=== PATIENT | female | born 1995 | race Caucasian/White ===

== ENCOUNTER 2017-11-11 17:54 | Observation (INO) | payer BC ==
[2017-11-11] MEDS ORDERED: Sodium Chloride 0.9% 10 ML Syringe FLUSH PRN (18:31)
[2017-11-11] MEDS ORDERED: Sodium Chloride 0.9% 2.5 ML Syringe FLUSH PRN (18:31)
[2017-11-11] MEDS ORDERED: HYDROmorphone 2 MG/ML SDV IVPUSH ONE (18:32)
[2017-11-11] MEDS ORDERED: Ondansetron 4 MG/2 ML SDV IVPUSH ONE (18:32)
[2017-11-11] MEDS ORDERED: Sodium Chloride 0.9% 1,000 ML IV ONE (18:32)
--- NOTE | 2017-11-11 18:35 | EDM.PDOC ---
ED HPI GENERAL MEDICAL PROBLEM - General Chief Complaint: Lower Extremity Injury/Pain Stated Complaint: POSSIBLE BROKEN RIGHT ANKLE Time Seen by Provider: 11/11/17 18:27 - History of Present Illness INITIAL COMMENTS - FREE TEXT/NARRATIVE: HISTORY AND PHYSICAL: History of present illness: The patient is a healthy 22-year-old female who presents after she was carrying a box down 8 stairs lost her footing and rolled her ankle and fell. Complains of pain at her right ankle but she did not lose consciousness hit her head and has no head neck or back pain. Patient states that she has no foot or toe pain and neurosensory is intact in her foot she has no proximal tib-fib knee or hip pain. The patient states that prior to these events she was in her usual state of good health with no systemic complaints and currently has no nausea or vomiting no chest pain no shortness of breath. Not taking medications prior to coming here. Patient denies . Patient states that she last ate food at 12 noon Review of systems: As per history of present illness and below otherwise all systems reviewed and negative. Past medical history: As per history of present illness and as reviewed below otherwise noncontributory. Surgical history: As per history of present illness and as reviewed below otherwise noncontributory. Social history: No reported history of drug or alcohol abuse. Family history: As per history of present illness and as reviewed below otherwise noncontributory. Physical exam: General: Well-developed well-nourished female who is overweight and nontoxic and tearful on my evaluation. Vital signs are noted by me HEENT: Atraumatic, normocephalic, negative for conjunctival pallor or scleral icterus, mucous membranes moist, throat clear, neck supple, nontender, trachea midline. There is no evidence of any facial swelling or deformities and there are no midline step-offs tenderness defects of the cervical spine Lungs: Clear to auscultation, breath sounds equal bilaterally, chest nontender. Heart: S1S2, regular rate and rhythm no overt murmurs Abdomen: Soft, nondistended, nontender. NABS Pelvis: Stable nontender. No lateral hip tenderness on the right Genitourinary: Deferred. Rectal: Deferred. Extremities: Atraumatic with full range of motion of all extremities with the exception of the right ankle where there is diffuse tenderness and there is a visible malalignment seen with the foot deviated laterally. The foot and toes and calcaneus are without tenderness defects or deformities and pulses are intact with a strong dorsalis pedis appreciated on the right foot. The proximal tib-fib is also nontender as is the knee thigh and hip. Legs are, negative for cords or calf pain. Neurovascular unremarkable. Neuro: Awake, alert, oriented. Motor and sensory unremarkable throughout. Exam nonfocal. Back: There are no midline step-offs tenderness defects of the lower thoracic or lumbar spine Diagnostics: X-ray right ankle and one view tib-fib Therapeutics: IV fluids Zofran Dilaudid 1851: Case was discussed with Dr. Higginbotham our orthopedic surgeon. He is coming in to review the films and reduce the fracture dislocation. Patient and family at bedside are also aware that we are awaiting the official reading. They are aware of my concern that this may be a trimalleolar fracture dislocation. They are aware that Dr. Higginbotham is coming in to look at the films and evaluate the patient personally. 1899: Case endorsed to Dr. Hannon to follow-up Dr. Higginbotham's consult and care plan and help facilitate disposition. Impression: Fracture dislocation of right ankle Definitive disposition and diagnosis as appropriate pending reevaluation and review of above. Please note that Dr. Higginbotham came to the ED and did reduce the dislocation and immobilized the ankle. She had a CAT scan performed and is scheduled to have surgery on November 12. She was admitted to the hospital for this care plan. Right Ankle Pain Score (Numeric/FACES): 9 - Related Data Allergies Allergy/AdvReac Type Severity Reaction Status Date / Time No Known Allergies Allergy Verified 11/11/17 18:10 Home Meds: Home Meds . [No Known Home Meds] 11/11/17 [History] Past Medical History Psychiatric History: Reports: Anxiety - Past Surgical History HEENT Surgical History: Reports: Oral Surgery Other HEENT Surgeries/Procedures: wisdom teeth Social & Family History - Family History Family Medical History: Noncontributory - Tobacco Use Smoking Status *Q: Never Smoker - Caffeine Use Caffeine Use: Reports: Coffee, Soda - Recreational Drug Use Recreational Drug Use: No Review of Systems - Review of Systems Review Of Systems: ROS reveals no pertinent complaints other than HPI. ED EXAM, GENERAL - Physical Exam Exam: See Below (See dictation) Course - Vital Signs Last Recorded V/S: Last Vital Signs Temp 36.3 C 11/12/17 04:00 Pulse 77 11/12/17 04:00 Resp 12 11/12/17 04:00 BP 117/62 11/12/17 04:00 Pulse Ox 95 11/12/17 04:00 - Orders/Labs/Meds Orders: Active Orders 24 hr Category Date Time Status Notify Provider Consults [RC] ASDIRECTED Care 11/11/17 18:55 Active Consult to Physician [CONS] Stat Cons 11/11/17 18:55 Active Ankle 2V Rt [CR] Stat Exams 11/11/17 18:31 Taken Tibia Fibula Rt [CR] Stat Exams 11/11/17 18:35 Taken Sodium Chloride 0.9% [Saline Flush] Med 11/11/17 18:31 Active 10 ml FLUSH ASDIRECTED PRN Sodium Chloride 0.9% [Saline Flush] Med 11/11/17 18:31 Active 2.5 ml FLUSH ASDIRECTED PRN Saline Lock Insert [OM.PC] Stat Oth 11/11/17 18:31 Ordered Medication Orders Cefazolin Sodium/Dextrose 2 gm (/ Premix) 50 mls @ 100 mls/hr IV ONCALL ONE Stop: 11/12/17 10:29 Last Admin: 11/12/17 09:02 Dose: 100 mls/hr Lactated Ringer's (Ringers, Lactated) 1,000 mls @ 50 mls/hr IV ASDIRECTED ARIAS Last Admin: 11/12/17 00:45 Dose: 50 mls/hr Morphine Sulfate (Morphine) 2 mg IVPUSH Q2H PRN PRN Reason: Pain (moderate 4-6) Oxycodone/Acetaminophen (Percocet 325-5 Mg) 1 tab PO Q4H PRN PRN Reason: Pain Last Admin: 11/11/17 22:16 Dose: 1 tab Sodium Chloride (Saline Flush) 10 ml FLUSH ASDIRECTED PRN PRN Reason: Keep Vein Open Sodium Chloride (Saline Flush) 2.5 ml FLUSH ASDIRECTED PRN PRN Reason: Keep Vein Open Meds: Medications Generic Name Dose Route Start Last Admin Trade Name Freq PRN Reason Stop Dose Admin Cefazolin Sodium/Dextrose 2 gm 50 mls @ 100 mls/hr 11/12/17 10:00 11/12/17 09 :02 / Premix IV 11/12/17 10:29 100 mls/hr ONCALL ONE Administration Lactated Ringer's 1,000 mls @ 50 mls/hr 11/12/17 00:19 11/12/17 00:45 Ringers, Lactated IV 50 mls/hr ASDIRECTED ARIAS Administration Morphine Sulfate 2 mg 11/12/17 08:45 Morphine IVPUSH Q2H PRN Pain (moderate 4-6) Oxycodone/Acetaminophen 1 tab 11/11/17 20:51 11/11/17 22:16 Percocet 325-5 Mg PO 1 tab Q4H PRN Administration Pain Sodium Chloride 10 ml 11/11/17 18:31 Saline Flush FLUSH ASDIRECTED PRN Keep Vein Open Sodium Chloride 2.5 ml 11/11/17 18:31 Saline Flush FLUSH ASDIRECTED PRN Keep Vein Open Discontinued Medications Generic Name Dose Route Start Last Admin Trade Name Freq PRN Reason Stop Dose Admin Fentanyl Confirm 11/11/17 19:44 11/11/17 23:27 Sublimaze Administered 11/11/17 19:45 Not Given Dose 200 mcg .ROUTE .STK-MED ONE Hydromorphone HCl 1 mg 11/11/17 18:32 11/11/17 18:44 Dilaudid IVPUSH 11/11/17 18:33 1 mg ONETIME ONE Administration Sodium Chloride 1,000 mls @ 999 mls/hr 11/11/17 18:32 11/11/17 18:44 Normal Saline IV 11/11/17 19:32 999 mls/hr STAT ONE Administration Propofol Confirm 11/11/17 19:44 11/11/17 23:23 Diprivan 50 Ml Administered 11/11/17 19:45 Not Given Dose 50 mls @ as directed .ROUTE .STK-MED ONE Lactated Ringer's 1,000 mls @ 999 mls/hr 11/11/17 20:36 11/11/17 21:45 Ringers, Lactated IV 11/11/17 21:36 999 mls/hr .BOLUS ONE Administration Acetaminophen Confirm 11/11/17 20:43 Ofirmev Administered 11/11/17 20:44 Dose 100 mls @ as directed IV .STK-MED ONE Lactated Ringer's 1,000 mls @ 50 mls/hr 11/12/17 08:00 Ringers, Lactated IV ASDIRECTED ARIAS Midazolam HCl Confirm 11/11/17 19:44 11/11/17 23:27 Versed 1 Mg/Ml Administered 11/11/17 19:45 Not Given Dose 2 mg .ROUTE .STK-MED ONE Morphine Sulfate 2 mg 11/11/17 20:51 11/12/17 08:26 Morphine IVPUSH 2 mg Q2H PRN Administration Pain (moderate 4-6) Ondansetron HCl 4 mg 11/11/17 18:32 11/11/17 18:44 Zofran IVPUSH 11/11/17 18:33 4 mg ONETIME ONE Administration Departure - Departure Time of Disposition: 20:00 Disposition: Admitted As Inpatient 65 Condition: Good Clinical Impression: Fracture dislocation of right ankle Qualifiers: Encounter type: initial encounter Fracture type: closed Qualified Code(s): S82.891A - Other fracture of right lower leg, initial encounter for closed fracture - Discharge Information - My Orders Last 24 Hours: My Active Orders 11/11/17 18:31 Ankle 2V Rt [CR] Stat Sodium Chloride 0.9% [Saline Flush] 10 ml FLUSH ASDIRECTED PRN Sodium Chloride 0.9% [Saline Flush] 2.5 ml FLUSH ASDIRECTED PRN Saline Lock Insert [OM.PC] Stat 11/11/17 18:35 Tibia Fibula Rt [CR] Stat 11/11/17 18:55 Notify Provider Consults [RC] ASDIRECTED Consult to Physician [CONS] Stat - Assessment/Plan Last 24 Hours: My Active Orders 11/11/17 18:31 Ankle 2V Rt [CR] Stat Sodium Chloride 0.9% [Saline Flush] 10 ml FLUSH ASDIRECTED PRN Sodium Chloride 0.9% [Saline Flush] 2.5 ml FLUSH ASDIRECTED PRN Saline Lock Insert [OM.PC] Stat 11/11/17 18:35 Tibia Fibula Rt [CR] Stat 11/11/17 18:55 Notify Provider Consults [RC] ASDIRECTED Consult to Physician [CONS] Stat
--- NOTE | 2017-11-11 19:37 | PCM.PREANE ---
Preanesthetic Assessment - Procedure Proposed Procedure: closed reduction of right ankle - Anesthesia/Transfusion/Family Hx Anesthesia History: Prior Anesthesia Without Reaction Family History of Anesthesia Reaction: No - Review of Systems Other: Reports: None - Physical Assessment NPO Status Date: 11/11/17 NPO Status Time: 13:30 O2 Sat by Pulse Oximetry: 98 Respiratory Rate: 18 Vital Signs: Last Vital Signs Temp 36.9 C 11/11/17 18:07 Pulse 92 11/11/17 18:07 Resp 18 11/11/17 18:07 BP 133/64 11/11/17 18:07 Pulse Ox 98 11/11/17 18:07 Height: 5 ft 9 in Weight: 108.862 kg ASA Class: 1E Mental Status: Alert & Oriented x3 Airway Class: Mallampati = 1 Dentition: Reports: Normal Dentition Thyro-Mental Finger Breadths: 3 Mouth Opening Finger Breadths: 3 ROM/Head Extension: Full - Allergies Allergies/Adverse Reactions: Allergies Allergy/AdvReac Type Severity Reaction Status Date / Time No Known Allergies Allergy Verified 11/11/17 18:10 - Acknowledgements Anesthesia Type Planned: MAC Pt an Appropriate Candidate for the Planned Anesthesia: Yes Alternatives and Risks of Anesthesia Discussed w Pt/Guardian: Yes Pt/Guardian Understands and Agrees with Anesthesia Plan: Yes PreAnesthesia Questionnaire Psychiatric History: Reports: Anxiety - Past Surgical History HEENT Surgical History: Reports: Oral Surgery Other HEENT Surgeries/Procedures: wisdom teeth - SUBSTANCE USE Smoking Status *Q: Never Smoker Recreational Drug Use History: No - HOME MEDS Home Medications: Home Meds . [No Known Home Meds] 11/11/17 [History] - CURRENT (IN HOUSE) MEDS Current Meds: Current Medications Sodium Chloride (Saline Flush) 10 ml FLUSH ASDIRECTED PRN PRN Reason: Keep Vein Open Sodium Chloride (Saline Flush) 2.5 ml FLUSH ASDIRECTED PRN PRN Reason: Keep Vein Open Discontinued Medications Hydromorphone HCl (Dilaudid) 1 mg IVPUSH ONETIME ONE Stop: 11/11/17 18:33 Last Admin: 11/11/17 18:44 Dose: 1 mg Sodium Chloride (Normal Saline) 1,000 mls @ 999 mls/hr IV STAT ONE Stop: 11/11/17 19:32 Last Admin: 11/11/17 18:44 Dose: 999 mls/hr Ondansetron HCl (Zofran) 4 mg IVPUSH ONETIME ONE Stop: 11/11/17 18:33 Last Admin: 11/11/17 18:44 Dose: 4 mg
[2017-11-11] MEDS ORDERED: Midazolam 1 MG/ML 2 ML SDV ONE (19:44)
[2017-11-11] MEDS ORDERED: fentaNYL 100 MCG/2 ML SDV ONE (19:44)
[2017-11-11] MEDS ORDERED: Lactated Ringers 1,000 ML IV ONE (20:36)
--- NOTE | 2017-11-11 20:53 | PCM48HPAN ---
Post Anesthesia Note - EVALUATION WITHIN 48HRS OF ANESTHETIC Vital Signs in Normal Range: Yes Patient Participated in Evaluation: Yes Respiratory Function Stable: Yes Airway Patent: Yes Cardiovascular Function Stable: Yes Hydration Status Stable: Yes Pain Control Satisfactory: Yes Nausea and Vomiting Control Satisfactory: Yes Mental Status Recovered: Yes Resp Rate: 18
[2017-11-11] MEDS: Acetaminophen/oxyCODONE 325-5 MG Tab PO PRN (22:16)
[2017-11-12] MEDS ORDERED: Lactated Ringers 1,000 ML IV SCH ×2 (00:19→08:00)
[2017-11-12] MEDS: Morphine 10 MG/ML Syringe IVPUSH PRN ×4 (00:42→08:26)
[2017-11-12] MEDS ORDERED: Morphine 4 MG/ML Syringe IVPUSH PRN (08:45)
--- NOTE | 2017-11-12 09:33 | HP ---
DATE OF : 1995 PRIMARY CARE PHYSICIAN: Bonita Weiner DO DATE OF PLANNED SURGERY: 11/12/2017. HISTORY OF PRESENT ILLNESS: The patient is a 22-year-old female, who, at approximately 6:00 p.m. today, slipped and fell, sustaining an injury to her right ankle. She denies additional injuries associated with the event. She did not hit her head. She has not had issues or other fractures involving this ankle previously. She rates her pain at about an 8 currently. PAST MEDICAL HISTORY: Anxiety. PAST SURGICAL HISTORY: [place] tooth extraction. MEDICATIONS: None. ALLERGIES: No known drug allergies. SOCIAL HISTORY: She does not use tobacco. She works at the [employer]. FAMILY HISTORY: Noncontributory. REVIEW OF SYSTEMS: She denies personal or family history of DVT/PE or bleeding/clotting problems associated with surgery. No history of anesthetic complications. She has otherwise been in her normal state of health recently. PHYSICAL EXAMINATION: GENERAL: Reveals a well-appearing female in mild distress. She is alert and oriented. She has placed appropriate judgment and normal affect. EXTREMITIES: She has obvious swelling and deformity involving her right ankle. There is no pain with palpation in the region of the right knee. No pain with gentle range of motion of the right hip. No evidence of any injury to her left lower extremity or bilateral upper extremities. She reports grossly intact sensation to light touch involving the deep peroneal, superficial peroneal, and tibial nerve distributions. She has a palpable radial pulse and brisk capillary refill to the toes. She is able to flex and extend the great toe with some discomfort given the ankle deformity. DIAGNOSTIC DATA: Results reviewed. She had a test, which was negative. Plain films were reviewed both pre and post reduction. Prereduction showed a fracture dislocation of the ankle, which was dislocated in a posterior and lateral direction. It appeared to be a trimalleolar fracture with a comminuted fibula fracture and medial malleolar fracture as well as a small posterior malleolar fracture. Postreduction films did show adequate reduction. CT for better characterization of fracture fragments is pending at the time of this dictation. ASSESSMENT: Fracture dislocation, right ankle. PLAN: Plan is for reduction under sedation this evening. This was performed with postreduction x-rays appropriate, please see the procedure note below. I would like to admit her to the hospital and plan for surgical fixation tomorrow. Admission will ensure appropriate elevation and allow surgical fixation prior to swelling that would preclude this surgery for a week or more. The patient was in agreement with this plan. We will plan on strict elevation overnight, n.p.o. after midnight. We will likely be able to do the surgery tomorrow afternoon. I will evaluate the CT and come up with a definitive surgical plan. Otherwise, I anticipate this will be done supine with fixation of the lateral and medial malleolus followed by assessment of intraoperative stability. PROCEDURE NOTE: Conscious sedation was provided by the anesthesia team. Reduction was performed by traction on the great toe, the ankle reduced relatively easily. A splint was placed with a varus and anterior directed mold distally. Informed consent: Following a thorough discussion of the risks, benefits, expected outcomes, and alternatives, the patient did wish to proceed with open reduction and internal fixation of this ankle fracture. Potential complications were discussed to include, but not limited to infection, neurovascular injury, DVT/PE, damage to adjacent structures including the likely result of temporary or permanent numbness or paresthesias involving the dorsal aspect of the foot, earlier related hardware related failure or pain, failure of the fracture to heal, stiffness of the ankle, persistent instability of the ankle, persistent pain in spite of surgery, need for additional surgery, and rarely loss of limb or life. MARY ANNE / SUSANNA /[id number]
--- NOTE | 2017-11-12 09:33 | PN ---
SUBJECTIVE: The patient reports she is doing well. Her pain was well controlled overnight. She has no complaints of chest pain, shortness of breath, nausea, vomiting, or other complaints. She has been elevating the ankle as instructed. She has been n.p.o. after midnight. OBJECTIVE: GENERAL: Examination reveals a well-appearing female. She is alert and oriented. VITAL SIGNS: Reviewed. She is afebrile, pulse 77, blood pressure 117/62, respiratory rate 12, and saturating 95% on room air. EXTREMITIES: Evaluation of her right lower extremity shows the splint to be in place. She reports intact sensation to light touch involving the dorsal and plantar aspects of the exposed toes including the first dorsal interspace. She is able to weakly flex and extend the toes. She has brisk capillary refill to the toes. ASSESSMENT: Status post reduction of ankle fracture dislocation. Preliminary schedule for OR intervention today. PLAN: Plan is to proceed with surgery today. Should continue with n.p.o. I have reviewed her CT scan this morning. Informed consent for this procedure was previously obtained. Additional questions were answered by the patient as well as her this morning. MARY ANNE / SUSANNA /[id number]
[2017-11-12] MEDS ORDERED: ceFAZolin 2 GM in Premix Bag 1 BAG IV ONE ×2 (10:00→12:57)
[2017-11-12] MEDS ORDERED: HYDROmorphone 2 MG/ML SDV IVPUSH ONE (12:55)
[2017-11-12] MEDS ORDERED: Scopolamine 1.5 MG Transdermal Patch TRDERM PRN (13:31)
--- NOTE | 2017-11-12 13:35 | PCM.PREANE ---
Preanesthetic Assessment - Procedure Proposed Procedure: ORIF R Ankle - Anesthesia/Transfusion/Family Hx Anesthesia History: Prior Anesthesia Without Reaction Family History of Anesthesia Reaction: No Transfusion History: No Prior Transfusion(s) Additional History: Pt states she does have a strong tendency toward motion sickness - scopalamine patch written for preop - Review of Systems General: No Symptoms Pulmonary: No Symptoms Cardiovascular: No Symptoms Gastrointestinal: Nausea (states slight uneasiness from pain) Neurological: No Symptoms Other: Reports: None - Physical Assessment NPO Status Date: 11/12/17 NPO Status Time: 03:00 O2 Sat by Pulse Oximetry: 95 Respiratory Rate: 20 Vital Signs: Last Vital Signs Temp 97.7 F 11/12/17 11:52 Pulse 69 11/12/17 11:52 Resp 20 11/12/17 11:52 BP 127/75 11/12/17 11:52 Pulse Ox 95 11/12/17 11:52 Height: 5 ft 9 in Weight: 268 lb 4.841 oz ASA Class: 1 Mental Status: Alert & Oriented x3 Airway Class: Mallampati = 2 Dentition: Reports: Normal Dentition Thyro-Mental Finger Breadths: 3 Mouth Opening Finger Breadths: 3 ROM/Head Extension: Full Lungs: Clear to Auscultation, Normal Respiratory Effort Cardiovascular: Regular Rate, Regular Rhythm - Lab Values: Laboratory Last Values Urine HCG, Qual NEGATIVE (NEGATIVE) 11/11/17 19:40 - Allergies Allergies/Adverse Reactions: Allergies Allergy/AdvReac Type Severity Reaction Status Date / Time No Known Allergies Allergy Verified 11/11/17 18:10 - Blood Blood Available: No Product(s) Available: None - Anesthesia Plan Free Text/Narrative:: GLMA (proseal) vs ETT Pre-Op Medication Ordered: Other (scop patch, zofran) - Acknowledgements Anesthesia Type Planned: General Anesthesia Pt an Appropriate Candidate for the Planned Anesthesia: Yes Alternatives and Risks of Anesthesia Discussed w Pt/Guardian: Yes Pt/Guardian Understands and Agrees with Anesthesia Plan: Yes PreAnesthesia Questionnaire Psychiatric History: Reports: Anxiety - Past Surgical History HEENT Surgical History: Reports: Oral Surgery Other HEENT Surgeries/Procedures: wisdom teeth Musculoskeletal Surgical History: Reports: Other (See Below) (closed reduction of ankle) - SUBSTANCE USE Smoking Status *Q: Never Smoker Second Hand Smoke Exposure: No Days Per Week of Alcohol Use: 3 Number of Drinks Per Day: 0 Total Drinks Per Week: 0 Date of Last Drink: 11/10/17 Time of Last Drink: 20:00 Recreational Drug Use History: No - HOME MEDS Home Medications: Home Meds . [No Known Home Meds] 11/11/17 [History] - CURRENT (IN HOUSE) MEDS Current Meds: Current Medications Lactated Ringer's (Ringers, Lactated) 1,000 mls @ 50 mls/hr IV ASDIRECTED ARIAS Last Admin: 11/12/17 00:45 Dose: 50 mls/hr Morphine Sulfate (Morphine) 2 mg IVPUSH Q2H PRN PRN Reason: Pain (moderate 4-6) Last Admin: 11/12/17 10:41 Dose: 2 mg Oxycodone/Acetaminophen (Percocet 325-5 Mg) 1 tab PO Q4H PRN PRN Reason: Pain Last Admin: 11/11/17 22:16 Dose: 1 tab Sodium Chloride (Saline Flush) 10 ml FLUSH ASDIRECTED PRN PRN Reason: Keep Vein Open Sodium Chloride (Saline Flush) 2.5 ml FLUSH ASDIRECTED PRN PRN Reason: Keep Vein Open Discontinued Medications Fentanyl (Sublimaze) Confirm Administered Dose 200 mcg .ROUTE .STK-MED ONE Stop: 11/11/17 19:45 Last Admin: 11/11/17 23:27 Dose: Not Given Hydromorphone HCl (Dilaudid) 1 mg IVPUSH ONETIME ONE Stop: 11/11/17 18:33 Last Admin: 11/11/17 18:44 Dose: 1 mg Hydromorphone HCl (Dilaudid) 0.2 mg IVPUSH ONETIME ONE Stop: 11/12/17 12:56 Sodium Chloride (Normal Saline) 1,000 mls @ 999 mls/hr IV STAT ONE Stop: 11/11/17 19:32 Last Admin: 11/11/17 18:44 Dose: 999 mls/hr Propofol (Diprivan 50 Ml) Confirm Administered Dose 50 mls @ as directed .ROUTE .STK-MED ONE Stop: 11/11/17 19:45 Last Admin: 11/11/17 23:23 Dose: Not Given Lactated Ringer's (Ringers, Lactated) 1,000 mls @ 999 mls/hr IV .BOLUS ONE Stop: 11/11/17 21:36 Last Admin: 11/11/17 21:45 Dose: 999 mls/hr Acetaminophen (Ofirmev) Confirm Administered Dose 100 mls @ as directed IV .STK- MED ONE Stop: 11/11/17 20:44 Cefazolin Sodium/Dextrose 2 gm (/ Premix) 50 mls @ 100 mls/hr IV ONCALL ONE Stop: 11/12/17 10:29 Last Admin: 11/12/17 09:02 Dose: 100 mls/hr Lactated Ringer's (Ringers, Lactated) 1,000 mls @ 50 mls/hr IV ASDIRECTED ARIAS Cefazolin Sodium/Dextrose 2 gm (/ Premix) 50 mls @ 100 mls/hr IV ONCALL ONE Stop: 11/12/17 13:26 Midazolam HCl (Versed 1 Mg/Ml) Confirm Administered Dose 2 mg .ROUTE .STK-MED ONE Stop: 11/11/17 19:45 Last Admin: 11/11/17 23:27 Dose: Not Given Morphine Sulfate (Morphine) 2 mg IVPUSH Q2H PRN PRN Reason: Pain (moderate 4-6) Last Admin: 11/12/17 08:26 Dose: 2 mg Ondansetron HCl (Zofran) 4 mg IVPUSH ONETIME ONE Stop: 11/11/17 18:33 Last Admin: 11/11/17 18:44 Dose: 4 mg
[2017-11-12] MEDS ORDERED: Ondansetron 4 MG/2 ML SDV ONE ×2 (14:07→16:34)
[2017-11-12] MEDS ORDERED: Propofol 200 MG/20 ML SDV ONE (14:07)
[2017-11-12] MEDS ORDERED: Lidocaine 2% 5 ML SDV ONE (14:07)
[2017-11-12] MEDS ORDERED: Midazolam 1 MG/ML 2 ML SDV ONE (14:08)
[2017-11-12] MEDS ORDERED: HYDROmorphone 2 MG/ML SDV ONE (14:08)
[2017-11-12] MEDS ORDERED: fentaNYL 250 MCG/5 ML SDV ONE (14:08)
[2017-11-12] MEDS ORDERED: diphenhydrAMINE 50 MG/ML SDV ONE (14:40)
[2017-11-12] MEDS ORDERED: Dexamethasone 4 MG/ML 5 ML MDV ONE (14:40)
[2017-11-12] MEDS ORDERED: fentaNYL 100 MCG/2 ML SDV IVPUSH PRN (15:12)
--- NOTE | 2017-11-12 15:16 | CR ---
EXAM DATE: 11/11/17 PATIENT'S AGE: 22 Patient: MELBA HURT Facility: [place], [place] Site . Site : 1995 Study: XRay Extremity Right TIB FIB [id number]/28/[id number] 6:51:14 PM Ordering Physician: Andie Jimenez Final Report: INDICATION: Trauma. TECHNIQUE: Single AP view of the right lower extremity tibia and fibula. IMPRESSION: Comminuted fracture of the distal shaft of the fibula with satisfactory alignment on the single view. Fracture through the medial malleolus with distal displacement of the fragment. Proximal tibia and fibula are intact. Dictated by Jacoby Pichardo MD @ Nov 11 2017 7:17PM (Electronic Signature) Report Signed by Proxy. SORIN
--- NOTE | 2017-11-12 15:17 | CR ---
EXAM DATE: 11/11/17 PATIENT'S AGE: 22 Patient: MELBA HURT Facility: [place], [place] Site . Site : 1995 Study: XRay Extremity Right ANKLE [id number]/28/2018 6:52:04 PM Ordering Physician: Andie Jimenez Final Report: INDICATION: Trauma. Distal tibia and fibular fractures. TECHNIQUE: Right ankle. Portable frontal and lateral cross-table views. IMPRESSION: The distal fibular fracture shows slight anterior angulation and marked comminution. There is a posterior dislocation of the tibiotalar joint with diastasis. Medial malleolar fracture fragment which is displaced medial and anterior along the anterior joint line. There is an additional fracture fragment projected posterior to the distal tibia which could be related to the posterior malleolus. Dictated by Jacoby Pichardo MD @ Nov 11 2017 7:18PM (Electronic Signature) Report Signed by Proxy. SORIN
--- NOTE | 2017-11-12 16:30 | CR ---
EXAM DATE: 11/11/17 PATIENT'S AGE: 22 Patient: MELBA HURT Facility: [place], [place] Site . Site : 1995 Study: XRay Extremity Right ankle [id number]/28/2018 8:39:29 PM Ordering Physician: Andie Jimenez Final Report: INDICATION: Post reduction. TECHNIQUE: Portable 2 view right ankle performed at 8:30 p.m. COMPARISON: Two-view right ankle performed at 6:39 p.m. FINDINGS: There has been anatomic reduction of the fracture within the posterior tuberosity of the distal tibia and of the medial malleolus. The spiral comminuted fracture within the distal fibula also shows improved alignment. The tibiotalar joint appears in anatomic alignment. IMPRESSION: Successful anatomic reduction of the tri malleolar fracture dislocation of the right ankle. Dictated by Efra Lora MD @ Nov 11 2017 8:57PM (Electronic Signature) Report Signed by Proxy. SORIN
[2017-11-12] MEDS ORDERED: Bupivacaine 0.25% 10 ML SDV ONE (16:34)
[2017-11-12] MEDS ORDERED: Bupivacaine 25%/EPINEPHrine/PF 0 ML ONE (16:34)
--- NOTE | 2017-11-12 16:34 | CT ---
EXAM DATE: 11/11/17 PATIENT'S AGE: 22 Patient: MELBA HURT Facility: [place], [place] Site . Site : 1995 Study: CT Extremity Right ANKLE [id number]/28/2018 9:27:10 PM Ordering Physician: Andie Jimenez Final Report: INDICATION: S/P reduction, eval for surgery TECHNIQUE: Noncontrast CT scan of the right ankle. Re-formatted images obtained. FINDINGS: Oblique comminuted mildly displaced fracture of the distal fibula. Fracture of the posterior aspect of the distal tibia which is minimally displaced. Nonunited old fracture of the proximal aspect of the 5th metatarsal. Soft tissue edema around the right ankle. Impression : 1. Oblique comminuted mildly displaced fracture of the distal fibula. 2. Fracture of the posterior aspect of the distal tibia which is minimally displaced. Dictated by Catracho Rock MD @ 11/11/2017 10:36:54 PM Dictated by: Catracho Rock MD @ 11/11/2017 22:37:03 (Electronic Signature) Report Signed by Proxy. SORIN
[2017-11-12] MEDS ORDERED: Ketorolac 30 MG/ML SDV ONE (16:40)
[2017-11-12] MEDS ORDERED: HYDROmorphone 1 MG/ML Syringe IVPUSH PRN (17:22)
--- NOTE | 2017-11-12 17:32 | PCM.OPNOTE ---
- General Post-Op/Procedure Note Date of Surgery/Procedure: 11/12/17 Operative Procedure(s): ORIF right ankle fracture Findings: Right sunni fracture/dislocation Pre Op Diagnosis: same Post-Op Diagnosis: same Anesthesia Technique: General ET Tube, Local Primary Surgeon: Kailash Higginbotham EBL in mLs: 50 Complications: none Condition: Good Free Text/Narrative:: Intake & Output 11/12/17 11/12/17 11/12/17 06:59 14:59 22:59 Intake Total 2112 Output Total 2700 Balance -588
--- NOTE | 2017-11-12 17:56 | PCM.POSTAN ---
POST ANESTHESIA ASSESSMENT - MENTAL STATUS Mental Status: Alert, Oriented - RESPIRATORY Respiratory Status: Respiratory Rate WNL, Airway Patent, O2 Saturation Stable - CARDIOVASCULAR CV Status: Pulse Rate WNL, Blood Pressure Stable - GASTROINTESTINAL GI Status: No Symptoms - PAIN Pain Score: 0 - POST OP HYDRATION Hydration Status: Adequate & Stable - OBSERVATIONS Free Text/Narrative:: Pt doing well postop with pain well controlled and no nausea. Stable for tx to phase II recovery on Med/Surg.
[2017-11-12] MEDS: ceFAZolin 1 GM in Premix Bag 1 BAG IV SCH (19:48)
--- NOTE | 2017-11-12 21:14 | PN ---
SUBJECTIVE: The patient is seen following surgery. She reports she is doing reasonably well at this time. Pain is well controlled. She denies chest pain, shortness of breath, nausea, vomiting, or other complaints. OBJECTIVE: VITAL SIGNS: The patient is afebrile with stable vital signs. Pulse is 92, blood pressure is 133/82, respiratory rate 11, and saturating 96% on room air at this point. MUSCULOSKELETAL: Examination shows the splint to be in place. There is brisk capillary refill of the toes. She reports intact sensation to light touch involving the dorsal and plantar aspect of the exposed toes. She can weakly flex and extend the toes as well. DIAGNOSTIC DATA: Results reviewed. Postoperative x-rays in plaster were reviewed. These show a good reduction of the fracture sites. No obvious complications. ASSESSMENT: Status post open reduction and internal fixation of right ankle fracture. PLAN: We will plan on keeping her in the hospital overnight. We will give 3 doses of Ancef postoperatively. She will likely be able to discharge home tomorrow. We will plan to see her again in the morning for a recheck. MARY ANNE MULLINS /[id number]
[2017-11-12] MEDS: Docusate Sodium 100 MG Cap PO SCH (22:00)
--- NOTE | 2017-11-12 23:49 | OR ---
SURGEON: DIPAK RANDLE MD DATE OF PROCEDURE: 11/12/2017 PREOPERATIVE DIAGNOSIS: Right ankle fracture dislocation. POSTOPERATIVE DIAGNOSIS: Right ankle fracture dislocation. OPERATION PERFORMED: Open reduction and internal fixation of right ankle fracture with fixation of lateral and medial malleolar fractures. COMPLICATIONS: None. ESTIMATED BLOOD LOSS: 50 mL. TOURNIQUET TIME: 90 minutes at 275 mmHg. INDICATIONS: The patient is a 22-year-old female, who sustained a fall yesterday, this resulted in a severe fracture dislocation of her right ankle. I saw her in the ER yesterday evening and a reduction under sedation was performed. We discussed the definitive fixation of this fracture. We elected to admit her overnight and perform the surgery the next day to avoid severe postoperative swelling. Consent for this procedure was obtained following a thorough discussion of the risks, benefits, expected outcomes, and alternatives. The patient elevated the ankle strictly overnight. DESCRIPTION OF PROCEDURE: I saw the patient in the preoperative holding area. The operative site was marked. She was brought back to the operating room. General anesthesia was administered by the anesthesia team. She received ancef preoperatively and one additinoal gram after deflation of the tourniquet during the case. A nonsterile tourniquet was applied to the thigh. She was positioned supine in the standard fashion. She was then prepped and draped in the normal sterile fashion. Following a multi-disciplinary time- out, the Esmarch bandage was applied and the tourniquet was inflated to 275 mmHg. A standard approach to the lateral malleolus was made. I used a long approximately 15 cm incision given the fact there were actually 2 separate lateral malleolar fractures, one comminuted fracture proximally and an oblique fracture distally. The fracture sites were identified with care not to necessarily strip the tissue. The distal fracture line was clean and reduced easily. I did place a lag screw for fixation of this. More proximally, there was comminution in no way to get a lag screw, I was able to, with significant traction bring this out to length. The plate was then applied, this was secured with a nonlocking screw proximally, centrally, and distally and filled in with additional locking screws distally, centrally, and proximally. Fluoroscopic views were checked to ensure appropriate position of the plate as well as good reduction of the fracture. The fracture lines were inspected visually to ensure appropriate length as well. Attention was then turned towards the medial side. Care was taken to preserve the saphenous vein/nerve. The fracture site was identified. This was a relatively vertically oriented fracture, however, the fracture pattern was not consistent with a supination adduction type injury as the dislocation was posterior and lateral. Additionally, the fibula fracture was more of a rotational pattern as opposed to the typical supination adduction pattern. Therefore, I did feel that fixation with screws as opposed to a plate was appropriate for this fracture. I placed 2 guidewires and checked their position under fluoroscopy. The posterior screw went in well, the anterior screw, however, penetrated the cortex and malreduced the fracture. I believe that there was likely some comminution of the fracture site at this location leading to difficulty with screw fixation. Therefore, I placed a second screw more posterior and parallel to the first. I did stress the ankle during surgery and there was a good fixation in appropriate reduction of the fracture, although, preferably, I would have placed one of the screws more anteriorly. Again, this was not possible given the comminution anteriorly, I did make 3 attempts, but did not obtain good fixation with any of the screws on the anterior position. The wounds were then thoroughly irrigated. Tourniquet was deflated. Hemostasis was obtained. There was actually a venous tourniquet during the case, so there was some blood loss of about 50 mL as previously described. Final fluoroscopic imaging was checked prior to tourniquet deflation, images were saved. Closure then occurred in layers with 2-0 Vicryl and donna for the medial side and 0 Vicryl, 2-0 Vicryl, and donna for the lateral side. A sterile dressing as well as a splint in neutral position was applied. The patient was then awoken from general anesthesia and transferred to recovery in stable condition. POSTOPERATIVE PLAN: We will include observation overnight for pain control as well as for her to receive 24 hours of postop Ancef. I will check additional x-rays in the PACU, in the splint. These are pending at the time of this dictation and will be reviewed when they are available. Again, I did feel that the medial side fixation was a bit more tenuous given the anterior comminution, therefore, I think that she should be strict nonweightbearing for 6 weeks. She will be in the splint for 2 weeks and will be seen back in clinic at the 2 week followup. At that time, she should have x-rays out of the splint and transition to a nonweightbearing short-leg cast for an additional 4 weeks. MARY ANNE / SUSANNA /[id number] MTDD
[2017-11-13] MEDS: ceFAZolin 1 GM in Premix Bag 1 BAG IV SCH ×3 (01:21→16:43)
[2017-11-13] MEDS: Acetaminophen/oxyCODONE 325-5 MG Tab PO PRN ×3 (07:35→17:39)
--- NOTE | 2017-11-13 08:00 | PN ---
SUBJECTIVE: The patient reports doing well this morning. She reports minimal pain overnight. She has been elevating the ankle. She denies any sore spots in the splint. She denies any chest pain, shortness of breath, nausea, vomiting, or other complaints. OBJECTIVE: GENERAL: Reveals a female in no apparent distress. VITAL SIGNS: Reviewed. She has been afebrile, pulse 71, blood pressure 112/62, respiratory rate 16, saturating 96% on 1.5 L of oxygen currently. The splint is in place and is clean, dry, and intact. She has brisk capillary refill to the toes. She is able to flex and extend the exposed toes and has intact sensation to light touch grossly involving the dorsal and plantar aspect of the exposed toes. ASSESSMENT: Postoperative day one status post ORIF of the right ankle fracture dislocation, doing well overall. PLAN: She worked with Physical Therapy this morning to ensure that she is safe on crutches and can maintain her nonweightbearing status. Then, we will plan on discharge to home likely later today. She will have Percocet for pain control as well as aspirin daily for DVT prophylaxis and Colace as needed. These scripts have already been provided. Her followup in clinic will be in approximately 2 weeks with x-rays out of the splint as well as suture removal. She should be placed back into a nonweightbearing short-leg cast at that time. These instructions were given to the patient as well as her , who was in the room this morning. MARY ANNE / SUSANNA /[id number]
--- NOTE | 2017-11-13 08:49 | CR ---
Procedural fluoroscopy Clinical history: Fracture 39.9 seconds of total fluoroscopic time was utilized for open reduction and internal fixation of ankl e fracture. Impression: Procedural fluoroscopy as above
[2017-11-13] MEDS ORDERED: Aspirin 325 MG Tab.EC PO SCH (09:00)
[2017-11-13] MEDS: Docusate Sodium 100 MG Cap PO SCH (10:34)
--- NOTE | 2017-11-13 13:43 | CR ---
EXAM DATE: 11/11/17 PATIENT'S AGE: 22 Patient: MELBA HURT Facility: [place], [place] Site . Site : 1995 Study: XRay Extremity Right ankle [id number]/29/2018 6:08:23 PM Ordering Physician: Anahy Linder Final Report: Indication: Status post ORIF Technique: Three views right ankle Comparison: November 11, 2017 Findings/Impression: : Overlying casting material obscures fine bony detail. Medial malleolus and distal fibular fractures again identified. Status post placement of two surgical screws through the medial malleolus and plate and screw placement along the distal right fibula. Alignment appears anatomic. No immediate hardware complication identified. There are skin donna along the medial and lateral aspects of the ankle. Dictated by Ingrid Ham MD @ Nov 12 2017 11:20PM (Electronic Signature) Report Signed by Proxy. SORIN
== END 2017-11-13 18:00 | disposition home or self-care (01) ==
LOC: MW.ED 17:54 → MW.MS 19:40
PROVIDERS: ADMIT Orthopaedic Surgery; ATTEND Orthopaedic Surgery
DX: S82.841A Displaced bimalleolar fracture of right lower leg, initial encounter for closed fracture (principal); F41.9 Anxiety disorder, unspecified; W01.0XXA Fall on same level from slipping, tripping and stumbling without subsequent striking against object, initial encounter; Z98.890 Other specified postprocedural states
CPT/HCPCS: 01462; 01480; 73590-26-RT; 73590-RT; 73600-26-RT; 73600-RT; 73610-26-RT; 73610-RT; 73700-26-RT; 73700-RT; 76001; 76001-26; 81025; 96361; 96374; 96375; 96376; 97161-GP; 97530-GP; 99285-25; A9270-GY; C1713; G0378; J0690; J1100; J1170; J1200; J1885; J2250; J2270; J2405; J2704; J3010; J7040; J7120

== ENCOUNTER 2018-08-26 15:23 | Emergency (ER) | payer BC ==
[2018-08-26] MEDS ORDERED: LORazepam 2 MG/ML SDV IVPUSH ONE (15:26)
[2018-08-26] MEDS ORDERED: Sodium Chloride 0.9% 1,000 ML IV ONE (15:26)
--- NOTE | 2018-08-26 15:27 | EDM.PDOCBH ---
ED HPI GENERAL MEDICAL PROBLEM - General Chief Complaint: Behavioral/Psych Stated Complaint: SHORTNESS OF BREATH Time Seen by Provider: 08/26/18 15:26 Source of Information: Reports: Patient History Limitations: Reports: No Limitations - History of Present Illness INITIAL COMMENTS - FREE TEXT/NARRATIVE: HISTORY AND PHYSICAL: History of present illness: Patient is a 23-year-old female who presents to the emergency room with concerns of a panic attack. She is brought in with a family member with labored breathing, anxious and numbness and tingling to her face and upper extremities 1 hour. She states she does have a history of anxiety but has not taken any PRN medications in "some time". She denies any fever, chills, chest pain, shortness of breath or cough. Denies any abdominal pain, nausea, vomiting, diarrhea, constipation or dysuria. Denies any recent head injury, trauma or falls. Review of systems: As per history of present illness and below otherwise all systems reviewed and negative. Past medical history: As per history of present illness and as reviewed below otherwise noncontributory. Surgical history: As per history of present illness and as reviewed below otherwise noncontributory. Social history: See social history for further information Family history: As per history of present illness and as reviewed below otherwise noncontributory. Physical exam: General: Well-developed and well-nourished 43-year-old female. Alert and oriented. Nontoxic appearing and in no acute distress. HEENT: Atraumatic, normocephalic, pupils equal and reactive bilaterally, negative for conjunctival pallor or scleral icterus, mucous membranes moist, TMs normal bilaterally, throat clear, neck supple, nontender, trachea midline. No drooling or trismus noted. No meningeal signs. No hot potato voice noted. Lungs: Clear to auscultation, breath sounds equal bilaterally, chest nontender. Heart: S1S2, regular rate and rhythm without overt murmur Abdomen: Soft, nondistended, nontender. Negative for masses or hepatosplenomegaly. Negative for costovertebral tenderness. Pelvis: Stable nontender. Genitourinary: Deferred. Rectal: Deferred. Skin: Intact, warm, dry. No lesions or rashes noted. Extremities: Atraumatic, moves all extremities per self without difficulty or deficits. negative for cords or calf pain. Neurovascular unremarkable. Neuro: Awake, alert, oriented. Cranial nerves II through XII unremarkable. Cerebellum unremarkable. Motor and sensory unremarkable throughout. Exam nonfocal. Notes: NIH 0, GCS 15. No neurological deficits or weakness. Patient does feel improved after the IV fluids and Ativan. Lab work and imaging results are pending. Lab work is unremarkable with the exception that her TSH is 6.79. She states she has not had a TSH drawn in approximately 4-6 years and has not previously had any problems that she was aware of with this. Head CT shows normal brain without contrast. There are some inflammatory changes in the bilateral maxillary and ethmoid sinuses. She has no sinus tenderness with palpation. Her vital signs are stable. We discussed the need to follow-up with her primary care provider for further evaluation of her thyroid and further management of medication administration/adjustment. Both the and the mother are at bedside. Supportive care measures were reviewed and discussed. Voices understanding and is agreeable to plan of care. Denies any further questions or concerns at this time. Diagnostics: CBC, CMP, UA, urine , TSH Therapeutics: IV fluid, Ativan Prescription: Ativan (#15) PRN Levothyroxine 50mcg QD Impression: Panic attack, resolved Hypothyroidism, unspecified Plan: 1. Today's lab work was within normal limits with the exception that your TSH was elevated at 6.79. Will start on low dose Levothyroxine once daily. This medication may need to be adjusted, so it is important he follow-up with your primary care provider for further evaluation and management of this. 2. Ativan has been given to you to help alleviate any future panic/anxiety attacks. He may take 1 tablet up to 3 times daily as needed. This medication may cause drowsiness a do not take it will driving her needing to be functioning outside the house. 3. Follow-up with your primary caregiver as we discussed. Return to the ED as needed and as discussed. Definitive disposition and diagnosis as appropriate pending reevaluation and review of above. - Related Data Allergies Allergy/AdvReac Type Severity Reaction Status Date / Time No Known Allergies Allergy Verified 08/26/18 15:27 Home Meds: Home Meds . [No Known Home Meds] 11/11/17 [History] Past Medical History Psychiatric History: Reports: Anxiety - Past Surgical History HEENT Surgical History: Reports: Oral Surgery Other HEENT Surgeries/Procedures: wisdom teeth Musculoskeletal Surgical History: Reports: Other (See Below) (closed reduction of ankle) Social & Family History - Family History Family Medical History: Noncontributory - Caffeine Use Caffeine Use: Reports: Coffee, Soda ED ROS GENERAL - Review of Systems Review Of Systems: ROS reveals no pertinent complaints other than HPI. ED EXAM, BEHAVIORAL HEALTH - Physical Exam Exam: See Below (See dictation) COURSE, BEHAVIORAL HEALTH COMP - Course Vital Signs: Last Vital Signs Temp 97.2 F 08/26/18 15:28 Pulse 84 08/26/18 16:13 Resp 21 H 08/26/18 16:13 BP 133/79 08/26/18 16:13 Pulse Ox 99 08/26/18 16:13 Orders, Labs, Meds: Active Orders 24 hr Category Date Time Status UA RFX BECKIE AND CULT IF INDIC [URIN] Stat Lab 08/26/18 15:26 Ordered Laboratory Tests 08/26/18 08/26/18 08/26/18 Range/Units 15:38 15:38 15:38 WBC 7.86 (4.0-11.0) K/uL RBC 4.72 (4.30-5.90) M/uL Hgb 14.2 (12.0-16.0) g/dL Hct 40.8 (36.0-46.0) % MCV 86.4 (80.0-98.0) fL MCH 30.1 (27.0-32.0) pg MCHC 34.8 (31.0-37.0) g/dL RDW Std Deviation 41.6 (28.0-62.0) fl RDW Coeff of Cory 13 (11.0-15.0) % Plt Count 311 (150-400) K/uL MPV 10.00 (7.40-12.00) fL Neut % (Auto) 49.5 (48.0-80.0) % Lymph % (Auto) 39.6 (16.0-40.0) % Allen % (Auto) 9.8 (0.0-15.0) % Eos % (Auto) 0.8 (0.0-7.0) % Baso % (Auto) 0.3 (0.0-1.5) % Neut # (Auto) 3.9 (1.4-5.7) K/uL Lymph # (Auto) 3.1 H (0.6-2.4) K/uL Allen # (Auto) 0.8 (0.0-0.8) K/uL Eos # (Auto) 0.1 (0.0-0.7) K/uL Baso # (Auto) 0.0 (0.0-0.1) K/uL Nucleated RBC % 0.0 /100WBC Nucleated RBCs # 0 K/uL Sodium 139 (136-145) mmol/L Potassium 3.6 (3.5-5.1) mmol/L Chloride 104 (98-107) mmol/L Carbon Dioxide 20.8 L (21.0-32.0) mmol/L BUN 10 (7.0-18.0) mg/dL Creatinine 0.8 (0.6-1.0) mg/dL Est Cr Clr Drug Dosing 109.38 mL/min Estimated GFR (MDRD) > 60.0 ml/min Glucose 102 (74-106) mg/dL Calcium 9.0 (8.5-10.1) mg/dL Total Bilirubin 0.5 (0.2-1.0) mg/dL AST 29 (15-37) IU/L ALT 63 (14-63) IU/L Alkaline Phosphatase 108 (46-116) U/L Total Protein 7.8 (6.4-8.2) g/dL Albumin 3.9 (3.4-5.0) g/dL Globulin 3.9 (2.6-4.0) g/dL Albumin/Globulin Ratio 1.0 (0.9-1.6) TSH 3rd Generation 6.79 H (0.36-3.74) uIU/mL HCG, Qual NEGATIVE (NEG) Medications Discontinued Medications Generic Name Dose Route Start Last Admin Trade Name Freq PRN Reason Stop Dose Admin Sodium Chloride 1,000 mls @ 999 mls/hr 08/26/18 15:26 08/26/18 15:44 Normal Saline IV 08/26/18 16:26 999 mls/hr STAT ONE Administration Lorazepam 1 mg 08/26/18 15:26 08/26/18 15:43 Ativan IVPUSH 08/26/18 15:27 2 mg ONETIME ONE Administration Departure - Departure Time of Disposition: 17:03 Disposition: Home, Self-Care 01 Clinical Impression: Panic attack Hypothyroidism Qualifiers: Hypothyroidism type: unspecified Qualified Code(s): E03.9 - Hypothyroidism, unspecified - Discharge Information Referrals: PCP,Unknown [Primary Care Provider] - Forms: ED Department Discharge - My Orders Last 24 Hours: My Active Orders 08/26/18 15:26 UA RFX BECKIE AND CULT IF INDIC [URIN] Stat - Assessment/Plan Last 24 Hours: My Active Orders 08/26/18 15:26 UA RFX BECKIE AND CULT IF INDIC [URIN] Stat
[2018-08-26 16:49] LABS: CHLORIDE,CL 104 mmol/L (98-107); SODIUM,NA 139 mmol/L (136-145)
--- NOTE | 2018-08-26 16:56 | CT ---
INDICATION: 23-year-old female. Numbness and tingling in the upper extremities. TECHNIQUE: CT images were acquired from foramen magnum to the vertex without contrast. FINDINGS: The ventricles normal in size and shape with no evidence of acute intracranial hemorrhage no mass effect. No subdural fluid collections. No evidence of focal infarction. No posterior fossa hemorrhage or mass effect. Fluid levels and mucosal thickening in the bilateral maxillary and ethmoid sinuses. The bony calvarium is unremarkable. IMPRESSION: 1. Normal CT brain without contrast. 2. Inflammatory changes in the bilateral maxillary and ethmoid sinuses. Please note that all CT scans at this facility use dose modulation, iterative reconstruction, and/or weight-based dosing when appropriate to reduce radiation dose to as low as reasonably achievable. Dictated by Kristian Willett MD @ Aug 26 2018 4:53PM Signed by Dr. Kristian Willett @ Aug 26 2018 4:55PM
== END 2018-08-26 17:26 | disposition home or self-care (01) ==
LOC: MW.ED 15:23
DX: F41.0 Panic disorder [episodic paroxysmal anxiety] (principal); E03.9 Hypothyroidism, unspecified; Z98.890 Other specified postprocedural states
CPT/HCPCS: 36415; 70450; 80053; 84443; 84703; 85025; 96361; 96374; 99284; J2060; J7040; 99283

== ENCOUNTER 2019-08-05 04:23 | Emergency (ER) | payer BC ==
--- NOTE | 2019-08-05 04:43 | EDM.PDOC ---
ED HPI GENERAL MEDICAL PROBLEM - General Chief Complaint: Chest Pain Stated Complaint: CHEST PAIN Time Seen by Provider: 08/05/19 04:40 - History of Present Illness INITIAL COMMENTS - FREE TEXT/NARRATIVE: The patient is a 24-year-old female who presents to the ER for chest pain since 6 PM last night and has been continuous for approximately 10-1/2 hours. She states that initially it was a burning sensation, and she took an antacid because she thought she might have heartburn. No fevers, no chills, no cough, no abdominal pain, no nausea or vomiting. She states that nothing makes it better and nothing makes it worse. It is not worsened with position, and definitely not worsened with exertion. She woke up this morning and the chest pain is still there and she is concerned because she does have a family history of heart disease so she came in to get checked out. chest pain Pain Score (Numeric/FACES): 7 - Related Data Allergies Allergy/AdvReac Type Severity Reaction Status Date / Time No Known Allergies Allergy Verified 08/05/19 04:28 Home Meds: Home Meds Escitalopram [Lexapro] 20 mg PO DAILY 08/05/19 [History] Past Medical History HEENT History: Reports: None Cardiovascular History: Reports: None Respiratory History: Reports: None Gastrointestinal History: Reports: None Genitourinary History: Reports: None NIGHT FILLER History: Reports: None Musculoskeletal History: Reports: None Neurological History: Reports: None Psychiatric History: Reports: Anxiety Endocrine/Metabolic History: Reports: None Insulin Pump Model and Sheet Metal Insulator: None Hematologic History: Reports: None Immunologic History: Reports: None Oncologic (Cancer) History: Reports: None Dermatologic History: Reports: None - Infectious Disease History Infectious Disease History: Reports: None - Past Surgical History HEENT Surgical History: Reports: Oral Surgery Other HEENT Surgeries/Procedures: wisdom teeth Musculoskeletal Surgical History: Reports: Other (See Below) Other Musculoskeletal Surgeries/Procedures:: Ankle Surgery Social & Family History - Family History Family Medical History: Noncontributory - Tobacco Use Smoking Status *Q: Never Smoker - Caffeine Use Caffeine Use: Reports: Coffee - Recreational Drug Use Recreational Drug Use: No ED ROS GENERAL - Review of Systems Review Of Systems: See Below (Positive for chest pain, negative shortness of breath, negative for dyspnea exertion, negative palpitations, negative hemoptysis, negative for syncope, negative for near syncope, negative for leg swelling, negative for cough, all other Positives and pertinent negatives as per HPI. All other pertinent systems were reviewed and are negative) ED EXAM, GENERAL - Physical Exam Exam: See Below Free Text/Narrative:: Constitutional: obese, anxious, no acute distress, Non-toxic appearance HEENT.: Normocephalic, Atraumatic, PERRL, EOMI, External ears are atraumatic, nares are patent without epistaxis Neck: Normal range of motion, Trachea Midline, No stridor Respiratory.: No respiratory distress, No tachypnea, Lungs Clear to Auscultation bilaterally without wheezes, rales, or rhonchi Cardiovascular.: Regular rate and Rhythm without murmurs, rubs, or gallops, good peripheral perfusion GI: obese, Abdomen soft and non tender Genital Urinary: Deferred Musculoskeletal: Good range of motion. All 4 extremities present and atraumatic , no edema Back: Full Range of Motion Skin: Warm, Dry, Color is ethnicity appropriate, No acute rash. Lymphatic: No lymphadenopathy noted Neurological: Alert, Awake and oriented x 3, No focal deficits noted appreciate , GCS 15 Psych: Present and cooperative, not psychotic, anxious Course - Vital Signs Text/Narrative:: Although it is unclear what the cause of her chest pain is, current evidence is clear if you have a young patient with a normal physical exam, normal vital signs, PERC zero, with a normal ECG, and especially, a normal chest x-ray and no exertional dyspnea, no emergency department medical work-up is needed at this time. ECG The ECG was read and interpreted by me. There are p waves before every QRS with a ventricular rate of 82. The MD, QRS, and QT intervals are all normal. Andreas is normal. ST segments are baseline and the T wave morphology is normal. Final interpretation is a normal Sinus rhythm and a normal ECG. CXR x-ray 2 views reviewed and interpreted by me -there are no pulmonary infiltrates, pleural effusions, pneumothorax, thoracic masses or any acute pathology Thus, malignant pathology such as myocarditis, endocarditis, pericardial effusion, acute coronary syndrome, pulmonary embolism, pulmonary infarction, pneumonia, pneumothorax, aortic dissection, others are highly unlikely and no medical work-up is needed at this time and the patient is stable for discharge. Last Recorded V/S: Last Vital Signs Temp 35.8 C L 08/05/19 04:25 Pulse 93 02/19/20 04:25 Resp 18 08/05/19 04:25 BP 141/69 H 08/05/19 04:25 Pulse Ox 98 08/05/19 04:25 - Orders/Labs/Meds Orders: Active Orders 24 hr Category Date Time Status EKG 12 Lead [EKG Documentation Completion] [RC] STAT Care 08/05/19 04:39 Active CXR [Chest 2V] [CR] Stat Exams 08/05/19 04:40 Taken Departure - Departure Time of Disposition: 05:05 Disposition: Home, Self-Care 01 Condition: Good Clinical Impression: Chest pain, unspecified Referrals: PCP,None [Primary Care Provider] - Forms: ED Department Discharge Additional Instructions: Nonspecific Chest Pain It is often hard to find the cause of chest pain. There is always a chance that your pain could be related to something serious; however it can also be caused by conditions that are not life-threatening. If you have chest pain, it is very important to follow up with your doctor. Although the cause of your chest pain is unclear at this time, it appears that you are safe to follow-up with a primary care provider Reasons to return to the emergency department are if you start to develop difficulty breathing with your chest pain, you are coughing up blood, you're having chest pain and passing out or any other concerns Sepsis Event Note - Evaluation Sepsis Screening Result: No Definite Risk - Focused Exam Vital Signs: Vital Signs Temp Pulse Resp BP Pulse Ox 08/05/19 04:25 35.8 C L 93 18 141/69 H 98 Date Exam was Performed: 08/05/19 Time Exam was Performed: 05:02 - My Orders Last 24 Hours: My Active Orders 08/05/19 04:39 EKG 12 Lead [EKG Documentation Completion] [RC] STAT 08/05/19 04:40 CXR [Chest 2V] [CR] Stat - Assessment/Plan Last 24 Hours: My Active Orders 08/05/19 04:39 EKG 12 Lead [EKG Documentation Completion] [RC] STAT 08/05/19 04:40 CXR [Chest 2V] [CR] Stat
--- NOTE | 2019-08-05 05:09 | CR ---
INDICATION: Chest pain COMPARISON: None available. FINDINGS: PA and lateral views of the chest were obtained. The lungs are clear. No focal or diffuse infiltrates are present. The heart is normal in size. The mediastinum is normal in appearance. The osseous structures are normal in appearance for the patient`s age. IMPRESSION: Normal chest 2 views. Dictated by Jesus Estrella MD @ Aug 05 2019 5:06AM Signed by Dr. Jesus Estrella @ Aug 05 2019 5:07AM
== END 2019-08-05 05:10 | disposition home or self-care (01) ==
LOC: MW.ED 04:23
DX: R07.9 Chest pain, unspecified (principal); F41.9 Anxiety disorder, unspecified; Z79.899 Other long term (current) drug therapy
CPT/HCPCS: 71046; 71046-26; 93005; 99285-25